=== PATIENT | female | born 1985 | race Caucasian/White ===

== ENCOUNTER 2016-09-11 20:50 | Inpatient (IN) | payer OTHER ==
[2016-09-11 21:44] VITALS: BMI 20.3
--- NOTE | 2016-09-11 21:50 | HP ---
COWS - Scale Resting Pulse: 0= [place] 80 or Below Sweatin= Chills/Flushing Restless Observation: 1= Difficult to Sit Still Pupil Size: 0= Normal to Room Light Bone or Joint Aches: 2= Severe Diffuse Aches Runny Nose/ Eye Tearin= Runny Nose/Eyes GI Upset > 30mins: 2= Nausea/Diarrhea Tremor Observation: 2= Slight Tremor Visible Yawning Observation: 0= None Anxiety or Irritability: 2=Irritable/Anxious Goose Flesh Skin: 3=Piloerection COWS Score: 15 Admission ROS S - HPI Chief Complaint: withdrawal sx Allergies/Adverse Reactions: Allergies Allergy/AdvReac Type Severity Reaction Status Date / Time Sulfa (Sulfonamide Allergy Intermediate Swelling Verified 09/11/16 21:52 Antibiotics) History of Present Illness: 31 years old female with long history of opiate nicotine dependence, denies medical issue has anxiety longest sobriety 3 years is admitted to detox Exam Limitations: No Limitations - Ebola screening Have you traveled outside of the country in the last 21 days: No (N) Have you had contact with anyone from an Ebola affected area: No Have you been sick,other than usual withdrawal symptoms: No Do you have a fever: No - Review of Systems Constitutional: Chills, Loss of Appetite, Changes in sleep, Unintentional Wgt. Loss, Unexplained wgt Loss EENT: reports: No Symptoms Reported Respiratory: reports: SOB with Exertion (green), Productive cough Cardiac: reports: No Symptoms Reported GI: reports: Diarrhea, Nausea, Poor Appetite, Poor Fluid Intake, Abdominal cramping : reports: No Symptoms Reported Musculoskeletal: reports: Back Pain, Joint Pain, Muscle Pain, Neck Pain Integumentary: reports: Change in Color (inner elbows) Neuro: reports: Tremors Endocrine: reports: No Symptoms Reported Hematology: reports: No Symptoms Reported Psychiatric: reports: Judgement Intact, Orientated x3, Anxious Other Systems: Reviewed and Negative Patient History - Patient Medical History Hx Anemia: No Hx Asthma: No Hx Chronic Obstructive Pulmonary Disease (COPD): No Hx Cancer: No Hx Cardiac Disorders: No Hx Congestive Heart Failure: No Hx Hypertension: No Hx Hypercholesterolemia: No Hx Pacemaker: No HX Cerebrovascular Accident: No Hx Seizures: No Hx Dementia: No Hx Diabetes: No Hx Gastrointestinal Disorders: No Hx Liver Disease: No Hx Genitourinary Disorders: No Hx Sexually Transmitted Disorders: No Hx Renal Disease (ESRD): No Hx Thyroid Disease: No Hx Human Immunodeficiency Virus (HIV): No Hx Hepatitis C: Yes Hx Depression: Yes Hx Suicide Attempt: No Hx Bipolar Disorder: No Hx Schizophrenia: No - Patient Surgical History Past Surgical History: No - PPD History Previous Implant?: Yes Documented Results: Negative w/o proof Implanted On Prior R Admission?: No PPD to be Administered?: Yes - Reproductive History Patient is a Female of Child Bearing Age (11 -55 yrs old): Yes Last Menstrual Period: 08/28/16 Patient : No - Smoking Cessation Smoking history: Current every day smoker Have you smoked in the past 12 months: Yes Aproximately how many cigarettes per day: 20 Cigars Per Day: 0 Hx Chewing Tobacco Use: No Initiated information on smoking cessation: Yes 'Breaking Loose' booklet given: 09/11/16 - Substance & Tx. History Hx Alcohol Use: No Hx Substance Use: Yes - Substances Abused Heroin Route: Inhalation Frequency: Daily Amount used: 20 bags Age of first use: 14 Date of Last Use: 09/11/16 Family Disease History - Family Disease History Family Disease History: Heart Disease: Father, Mother Admission Physical Exam [facility] - Physical General Appearance: Yes: Appropriately Dressed, Mild Distress, Thin, Tremorous, Irritable, Sweating, Anxious HEENTM: Yes: Hearing grossly Normal, Normal ENT Inspection, Normocephalic, Normal Voice Respiratory: Yes: Chest Non-Tender, Lungs Clear, Normal Breath Sounds, No Respiratory Distress, No Accessory Muscle Use Neck: Yes: Supple, Trachea in good position Breast: Yes: Breasts Symetrical Cardiology: Yes: Regular Rhythm, Regular Rate, S1, S2 Abdominal: Yes: Non Tender, Soft Genitourinary: Yes: Within Normal Limits Back: Yes: Normal Inspection Musculoskeletal: Yes: full range of Motion, Gait Steady, Back pain, Muscle Pain Extremities: Yes: Normal Range of Motion, Non-Tender, Tremors Neurological: Yes: Fully Oriented, Alert, Motor Strength 5/5, Normal Response, Depressed Affect Integumentary: Yes: Warm, Track [place] Lymphatic: Yes: Within Normal Limits - Diagnostic (1) Opioid dependence with withdrawal Current Visit: Yes Status: Acute (2) Cocaine dependence, uncomplicated Current Visit: Yes Status: Acute (3) Nicotine dependence Current Visit: Yes Status: Acute Qualifiers: Nicotine product type: cigarettes Substance use status: in withdrawal Qualified Code(s): F17.213 - Nicotine dependence, cigarettes, with withdrawal (4) Weight loss Current Visit: Yes Status: Acute (5) Skin abrasion Current Visit: Yes Status: Acute (6) Hepatitis C antibody test positive Current Visit: Yes Status: Chronic (7) Depression with anxiety Current Visit: Yes Status: Suspected Cleared for Admission BHS - Detox or Rehab S Level of Care: Medically Managed Detox Regimen/Protocol: Methadone BHS Breath Alcohol Content Breath Alcohol Content: 0 Vital Signs - Vital Signs Vital Signs Refused: No Temperature: 96.2 F Temperature Source: Oral Pulse Rate: 73 Respiratory Rate: 16 Blood Pressure: 103/66 BP Location: Left Arm Blood Pressure Position: Sitting - Height Height: 5 ft 3 in - Weight Weight: 115 lb Weight Measurement Method: Standing Scale Body Mass Index (BMI): 20.3 - Bowel Function Bowel Movement: Yes Urine Pregancy Test - Result Urine Test Results: Negative- NO Line Present Urine Drug Screen - Control Is Test Valid: Yes - Results Drug Screen Negative: No Urine Drug Screen Results: OPI-Opiates, MDMA-Ecstasy, OXY-Oxycodone
[2016-09-11] MEDS ORDERED: MENTHOL/PHENOL 1 EACH UD MM PRN (21:58)
[2016-09-11] MEDS ORDERED: MAG HYDROX/AL HYDROX/SIMETH 30 ML UNIT-DOSE CUP PO PRN (21:58)
[2016-09-11] MEDS ORDERED: MAGNESIUM CITRATE 300 ML BOTTLE PO PRN (21:58)
[2016-09-11] MEDS ORDERED: P-EPHED 60MG/TRIPROLIDI 2.5MG TABLET PO PRN (21:58)
[2016-09-11] MEDS ORDERED: METHADONE HCL 10 MG TABLET (FOR DETOX USE ONLY) PO ONE ×2 (21:58→23:00)
[2016-09-11] MEDS ORDERED: guaiFENesin/D-METHORPHAN HB 10 ML UNIT-DOSE CUPS PO PRN (21:58)
[2016-09-11] MEDS ORDERED: NICOTINE POLACRILEX 4 MG GUM BUC PRN (21:58)
[2016-09-11] MEDS ORDERED: ACETAMINOPHEN 325 MG TABLET (FP) PO PRN (21:58)
[2016-09-11] MEDS ORDERED: LOPERAMIDE HCL 2 MG CAPSULE PO PRN (21:58)
[2016-09-11] MEDS ORDERED: MAGNESIUM HYDROX 2400MG/30ML ORAL SUSPENSION 30 ML CUP PO PRN (21:58)
[2016-09-11] MEDS ORDERED: IBUPROFEN 400 MG TABLET (FP) PO PRN (21:58)
[2016-09-11] MEDS ORDERED: BACITRACIN 0.9 GM PACKET TP ONE (22:00)
[2016-09-11] MEDS: diazePAM 5 MG TABLET PO PRN (23:01)
[2016-09-11] MEDS: CYCLOBENZAPRINE HCL 10 MG TABLET (FP) PO PRN (23:02)
[2016-09-11] MEDS: THIAMINE HCL 100 MG TABLET (FP) PO SCH (23:07)
[2016-09-11 23:08] LABS: URINE APPEARANCE CLOUDY; URINE BILIRUBIN NEGATIVE (NEGATIVE); URINE BLOOD 1+ (NEGATIVE); URINE COLOR DKYELLOW; URINE GLUCOSE (UA) NEGATIVE (NEGATIVE); URINE KETONE NEGATIVE (NEGATIVE); URINE LEUK ESTERASE 3+ (NEGATIVE); URINE NITRITE POSITIVE (NEGATIVE); URINE PROTEIN 1+ (NEGATIVE); URINE UROBILINOGEN 4.0 E.U/dl E.U./dl (0.2-1.0)
[2016-09-11 23:15] LABS: URINE BACTERIA MANY /hpf (NONE SEEN); URINE MUCUS MANY; URINE RBC 7 /hpf (0-3); URINE WBC 521 /hpf (3-5)
[2016-09-12] MEDS: GABAPENTIN 300 MG CAPSULE (FP) PO SCH ×3 (05:36→22:39)
[2016-09-12 09:54] LABS: MCH 27.7 pg (25.7-33.7); MEAN CELL VOLUME 81.6 fl (80-96); MEAN PLT VOLUME 7.3 fl (7.5-11.1); PLATELET COUNT 263 K/MM3 (134-434); RDW 13.1 % (11.6-15.6); WHITE BLOOD COUNT 6.5 K/mm3 (4.0-10.0)
--- NOTE | 2016-09-12 09:55 | PN ---
S COWS - Scale Resting Pulse: 0= [place] 80 or Below Sweatin=Flushed/Facial Moisture Restless Observation: 1= Difficult to Sit Still Pupil Size: 1= Pupils >than Normal Bone or Joint Aches: 2= Severe Diffuse Aches Runny Nose/ Eye Tearin= Nasal Congestion GI Upset > 30mins: 1= Stomach Cramp Tremor Observation of Outstretched Hands: 1= Tremor [place], Not Seen Yawning Observation: 0= None Anxiety or Irritability: 2=Irritable/Anxious Goose Flesh Skin: 0=Smooth Skin COWS Score: 11 S Progress Note (SOAP) Subjective: interrupted sleep, sweats, nausea Objective: 09/12/16 09:53 Vital Signs Temperature 97.4 F L 09/12/16 06:35 Pulse Rate 70 09/12/16 06:35 Respiratory Rate 18 09/12/16 06:35 Blood Pressure 97/61 09/12/16 06:35 O2 Sat by Pulse Oximetry (%) Laboratory Tests 09/11/16 23:00 Urine Color Dkyellow Urine Appearance Cloudy Urine pH 7.0 Ur Specific [place] 1.016 Urine Protein 1+ H Urine Glucose (UA) Negative Urine Ketones Negative Urine Blood 1+ H Urine Nitrite Positive Urine Bilirubin Negative Urine Urobilinogen 4.0 e.u/dl H Ur Leukocyte Esterase 3+ H Urine RBC 7 Urine WBC 521 Ur Epithelial Cells Moderate Urine Bacteria Many Urine Mucus Many 09/12/16 11:11 Laboratory Tests 09/11/16 09/12/16 09/12/16 23:00 07:00 07:00 WBC 6.5 RBC 4.34 Hgb 12.0 Hct 35.4 MCV 81.6 MCHC 34.0 RDW 13.1 Plt Count 263 MPV 7.3 L Sodium 141 Potassium 3.7 Chloride 99 Carbon Dioxide 34 H Anion Gap 8 BUN 7 Creatinine 0.8 Creat Clearance w eGFR > 60 Random Glucose 74 Calcium 8.9 Total Bilirubin 0.2 AST 11 L ALT 18 Alkaline Phosphatase 84 Total Protein 7.3 Albumin 3.0 L Urine Color Dkyellow Urine Appearance Cloudy Urine pH 7.0 Ur Specific [place] 1.016 Urine Protein 1+ H Urine Glucose (UA) Negative Urine Ketones Negative Urine Blood 1+ H Urine Nitrite Positive Urine Bilirubin Negative Urine Urobilinogen 4.0 e.u/dl H Ur Leukocyte Esterase 3+ H Urine RBC 7 Urine WBC 521 Ur Epithelial Cells Moderate Urine Bacteria Many Urine Mucus Many pt aox3 in nad , ambulating Assessment: 09/12/16 09:54 withdrawal sx's 09/12/16 11:14 roger. u/a r/o uti Plan: cont detox increase fluids repeat u/a , cx
[2016-09-12] MEDS ORDERED: METHADONE HCL 10 MG TABLET (FOR DETOX USE ONLY) PO ONE (10:00)
[2016-09-12 10:21] LABS: ALK PHOS 84 U/L (45-117); ANION GAP 8 (8-16); BILIRUBIN,TOTAL 0.2 mg/dL (0.2-1.0); CALCIUM 8.9 mg/dL (8.5-10.1); CO2 34 mmol/L (21-32); CREATININE 0.8 mg/dL (0.55-1.02); GLUCOSE,RANDOM 74 mg/dL (74-106); SGOT/AST 11 U/L (15-37); SGPT/ALT 18 U/L (12-78); TOT PROT 7.3 g/dl (6.4-8.2)
[2016-09-12] MEDS: PRENATAL VITAMINS W/ FOLIC ACID TABLET (FP) PO SCH (10:32)
[2016-09-12] MEDS: CYCLOBENZAPRINE HCL 10 MG TABLET (FP) PO PRN ×2 (10:32→22:39)
[2016-09-12] MEDS: diazePAM 5 MG TABLET PO PRN (10:32)
[2016-09-12] MEDS: NICOTINE 21 MG/24 HOURS TOPICAL PATCH TD SCH (10:33)
--- NOTE | 2016-09-12 12:03 | CONSULT ---
[facility] Psychiatric Consult - Data Date of interview: 09/12/16 Admission source: [facility] Identifying data: First admission to [facility] for this 31 y/o female seeking detox treatment on for heroin dependence.Patient is single without children,domiciled,unemployed and dependent on relatives/friends for financial support. Substance Abuse History: - Smoking Cessation. Smoking history: Current every day smoker. Have you smoked in the past 12 months: Yes. Aproximately how many cigarettes per day: 20. Cigars Per Day: 0. Hx Chewing Tobacco Use: No. Initiated information on smoking cessation: Yes. 'Breaking Loose' booklet given : 09/11/16. - Substance & Tx. History. Hx Alcohol Use: No. Hx Substance Use: Yes. - Substances Abused. Heroin. Route: Inhalation. Frequency: Daily. Amount used: 20 bags. Age of first use: 14. Date of Last Use: 09/11/16. Confirmed by the patient in this interview. Medical History: Patient endorses good general health. Psychiatric History: Patient admits to one psychiatric hospitalization at [facility] in [facility] (years ago).Circumstances not discussed.Ms Tejada states that she is diagnosed with MDD,Anxiety Disorder and PTSD.She is managed by a private psychiatrist,Dr Doe,in [facility].Maintained on suboxone,klonopin and gabapentin.Patient is a distant and evasive historian.No interest for psychotropic medications with the exception of benzodiazepines. Physical/Sexual Abuse/Trauma History: Patient declines to discuss this topic. Additional Comment: Urine Drug Screen Results: OPI-Opiates, MDMA-Ecstasy, OXY- Oxycodone.Noted. Mental Status Exam - Mental Status Exam Alert and Oriented to: Time, Place, Person Cognitive Function: Good Patient Appearance: Unkempt, Disheveled Mood: Nervous, Anxious Affect: Mood Congruent Patient Behavior: Sedated, Fatigued Speech Pattern: Clear Voice Loudness: Normal Thought Process: Goal Oriented Thought Disorder: Not Present Hallucinations: Denies Suicidal Ideation: Denies Homicidal Ideation: Denies Insight/Judgement: Poor Sleep: Well Appetite: Good Muscle strength/Tone: Normal Gait/Station: Normal Psychiatric Findings - Problem List ([place] 1, 2,3) (1) Opioid dependence with withdrawal Current Visit: Yes Status: Acute (2) Nicotine dependence Current Visit: Yes Status: Acute Qualifiers: Nicotine product type: cigarettes Substance use status: in withdrawal Qualified Code(s): F17.213 - Nicotine dependence, cigarettes, with withdrawal (3) Ecstasy abuse Current Visit: Yes Status: Acute (4) Substance induced mood disorder Current Visit: Yes Status: Acute (5) Hepatitis C antibody test positive Current Visit: Yes Status: Chronic - Initial Treatment Plan Initial Treatment Plan: Psychoeducation.Detoxification in progress.Observation.
--- NOTE | 2016-09-12 15:33 | EKG ---
Test Reason : Blood Pressure : / mmHG Vent. Rate : 071 BPM Atrial Rate : 071 BPM P-R Int : 150 ms QRS Dur : 096 ms QT Int : 410 ms P-R-T Axes : 070 064 052 degrees QTc Int : 445 ms NORMAL SINUS RHYTHM NORMAL ECG NO PREVIOUS ECGS AVAILABLE Confirmed by SAAD TORO MD ([id number]) on 09/12/2016 3:33:01 PM Referred By: Confirmed By:SAAD TORO MD
[2016-09-12] MEDS: THIAMINE HCL 100 MG TABLET (FP) PO SCH (22:39)
[2016-09-13] MEDS: GABAPENTIN 300 MG CAPSULE (FP) PO SCH ×3 (07:31→22:29)
[2016-09-13] MEDS ORDERED: METHADONE HCL 5 MG TABLET (FOR DETOX USE ONLY) PO ONE (10:00)
[2016-09-13 10:05] LABS: URINE APPEARANCE CLOUDY; URINE BILIRUBIN NEGATIVE (NEGATIVE); URINE BLOOD NEGATIVE (NEGATIVE); URINE COLOR AMBER; URINE GLUCOSE (UA) NEGATIVE (NEGATIVE); URINE KETONE NEGATIVE (NEGATIVE); URINE NITRITE POSITIVE (NEGATIVE); URINE UROBILINOGEN NEGATIVE E.U./dl (0.2-1.0)
[2016-09-13] MEDS: diazePAM 5 MG TABLET PO PRN ×2 (10:19→22:29)
[2016-09-13] MEDS: PRENATAL VITAMINS W/ FOLIC ACID TABLET (FP) PO SCH (10:20)
[2016-09-13] MEDS: NICOTINE 21 MG/24 HOURS TOPICAL PATCH TD SCH (10:20)
[2016-09-13 10:45] LABS: URINE LEUK ESTERASE 3+ (NEGATIVE); URINE PROTEIN 1+ (NEGATIVE)
[2016-09-13 10:48] LABS: CALCIUM OXALATE CRYSTALS MANY /hpf (NONE SEEN); URINE BACTERIA MANY /hpf (NONE SEEN); URINE MUCUS MANY; URINE RBC 9 /hpf (0-3); URINE WBC 442 /hpf (3-5)
--- NOTE | 2016-09-13 11:19 | PN ---
BHS COWS - Scale Resting Pulse: 2= [place] 101-120 Sweatin=Flushed/Facial Moisture Restless Observation: 0= Sits Still Pupil Size: 0= Normal to Room Light Bone or Joint Aches: 2= Severe Diffuse Aches Runny Nose/ Eye Tearin= Nasal Congestion GI Upset > 30mins: 0= None Tremor Observation of Outstretched Hands: 2= Slight Tremor Visible Yawning Observation: 2= >3x During Session Anxiety or Irritability: 2=Irritable/Anxious Goose Flesh Skin: 0=Smooth Skin COWS Score: 13 BHS Progress Note (SOAP) Subjective: agitation anxiety sweats shakes interrupted sleep body aches Objective: 09/13/16 11:18 Vital Signs Temperature 98.2 F 09/13/16 10:20 Pulse Rate 110 H 09/13/16 10:20 Respiratory Rate 16 09/13/16 10:20 Blood Pressure 113/68 09/13/16 10:20 O2 Sat by Pulse Oximetry (%) Laboratory Tests 09/11/16 09/12/16 09/12/16 23:00 07:00 07:00 WBC 6.5 RBC 4.34 Hgb 12.0 Hct 35.4 MCV 81.6 MCHC 34.0 RDW 13.1 Plt Count 263 MPV 7.3 L Sodium 141 Potassium 3.7 Chloride 99 Carbon Dioxide 34 H Anion Gap 8 BUN 7 Creatinine 0.8 Creat Clearance w eGFR > 60 Random Glucose 74 Calcium 8.9 Total Bilirubin 0.2 AST 11 L ALT 18 Alkaline Phosphatase 84 Total Protein 7.3 Albumin 3.0 L Urine Color Dkyellow Urine Appearance Cloudy Urine pH 7.0 Ur Specific [place] 1.016 Urine Protein 1+ H Urine Glucose (UA) Negative Urine Ketones Negative Urine Blood 1+ H Urine Nitrite Positive Urine Bilirubin Negative Urine Urobilinogen 4.0 e.u/dl H Ur Leukocyte Esterase 3+ H Urine RBC 7 Urine WBC 521 Ur Epithelial Cells Moderate Calcium Oxalate Crystal Urine Bacteria Many Urine Mucus Many RPR Titer 09/12/16 09/12/16 07:00 08:00 WBC RBC Hgb Hct MCV MCHC RDW Plt Count MPV Sodium Potassium Chloride Carbon Dioxide Anion Gap BUN Creatinine Creat Clearance w eGFR Random Glucose Calcium Total Bilirubin AST ALT Alkaline Phosphatase Total Protein Albumin Urine Color [place] Urine Appearance Cloudy Urine pH 6.0 Ur Specific [place] 1.018 Urine Protein 1+ H Urine Glucose (UA) Negative Urine Ketones Negative Urine Blood Negative Urine Nitrite Positive Urine Bilirubin Negative Urine Urobilinogen Negative Ur Leukocyte Esterase 3+ H Urine RBC 9 Urine WBC 442 Ur Epithelial Cells Rare Calcium Oxalate Crystal Many Urine Bacteria Many Urine Mucus Many RPR Titer Nonreactive pt denies any s/s uti or any urinary infections encouraged increased fluid intake awake/alert ambulating no acute distress Assessment: 09/13/16 11:19 withdrawal sx Plan: continue detox increase fluids
[2016-09-13] MEDS: THIAMINE HCL 100 MG TABLET (FP) PO SCH (22:29)
[2016-09-13] MEDS: CYCLOBENZAPRINE HCL 10 MG TABLET (FP) PO PRN (22:30)
[2016-09-14] MEDS: diazePAM 5 MG TABLET PO PRN ×2 (05:39→10:41)
[2016-09-14] MEDS: GABAPENTIN 300 MG CAPSULE (FP) PO SCH ×3 (05:39→22:40)
[2016-09-14] MEDS ORDERED: METHADONE HCL 5 MG TABLET (FOR DETOX USE ONLY) PO ONE (10:00)
[2016-09-14] MEDS: NICOTINE 21 MG/24 HOURS TOPICAL PATCH TD SCH (11:08)
[2016-09-14] MEDS: PRENATAL VITAMINS W/ FOLIC ACID TABLET (FP) PO SCH (11:09)
--- NOTE | 2016-09-14 12:42 | PN ---
BHS Progress Note (SOAP) Subjective: Body Aches, Tremors, Sweating, Productive cough. Objective: PT. A & O X 3, OBSERVED AMBULATING ON UNIT. LUNG SOUNDS AUSCULTATED CLEAR AND EQUAL BILATERALLY. 09/14/16 12:30 Vital Signs Temperature 97.9 F 09/14/16 09:53 Pulse Rate 121 H 09/14/16 09:53 Respiratory Rate 20 09/14/16 09:53 Blood Pressure 111/62 09/14/16 09:53 O2 Sat by Pulse Oximetry (%) Laboratory Last Values WBC 6.5 K/mm3 (4.0-10.0) 09/12/16 07:00 RBC 4.34 M/mm3 (3.60-5.2) 09/12/16 07:00 Hgb 12.0 GM/dL (10.7-15.3) 09/12/16 07:00 Hct 35.4 % (32.4-45.2) 09/12/16 07:00 MCV 81.6 fl (80-96) 09/12/16 07:00 MCHC 34.0 g/dl (32.0-36.0) 09/12/16 07:00 RDW 13.1 % (11.6-15.6) 09/12/16 07:00 Plt Count 263 K/MM3 (134-434) 09/12/16 07:00 MPV 7.3 fl (7.5-11.1) L 09/12/16 07:00 Sodium 141 mmol/L (136-145) 09/12/16 07:00 Potassium 3.7 mmol/L (3.5-5.1) 09/12/16 07:00 Chloride 99 mmol/L (98-107) 09/12/16 07:00 Carbon Dioxide 34 mmol/L (21-32) H 09/12/16 07:00 Anion Gap 8 (8-16) 09/12/16 07:00 BUN 7 mg/dL (7-18) 09/12/16 07:00 Creatinine 0.8 mg/dL (0.55-1.02) 09/12/16 07:00 Creat Clearance w eGFR > 60 (>60) 09/12/16 07:00 Random Glucose 74 mg/dL (74-106) 09/12/16 07:00 Calcium 8.9 mg/dL (8.5-10.1) 09/12/16 07:00 Total Bilirubin 0.2 mg/dL (0.2-1.0) 09/12/16 07:00 AST 11 U/L (15-37) L 09/12/16 07:00 ALT 18 U/L (12-78) 09/12/16 07:00 Alkaline Phosphatase 84 U/L (45-117) 09/12/16 07:00 Total Protein 7.3 g/dl (6.4-8.2) 09/12/16 07:00 Albumin 3.0 g/dl (3.4-5.0) L 09/12/16 07:00 Urine Color [place] 09/12/16 08:00 Urine Appearance Cloudy 09/12/16 08:00 Urine pH 6.0 (5.0-8.0) 09/12/16 08:00 Ur Specific [place] 1.018 (1.001-1.035) 09/12/16 08:00 Urine Protein 1+ (NEGATIVE) H 09/12/16 08:00 Urine Glucose (UA) Negative (NEGATIVE) 09/12/16 08:00 Urine Ketones Negative (NEGATIVE) 09/12/16 08:00 Urine Blood Negative (NEGATIVE) 09/12/16 08:00 Urine Nitrite Positive (NEGATIVE) 09/12/16 08:00 Urine Bilirubin Negative (NEGATIVE) 09/12/16 08:00 Urine Urobilinogen Negative E.U./dl (0.2-1.0) 09/12/16 08:00 Ur Leukocyte Esterase 3+ (NEGATIVE) H 09/12/16 08:00 Urine RBC 9 /hpf (0-3) 09/12/16 08:00 Urine WBC 442 /hpf (3-5) 09/12/16 08:00 Ur Epithelial Cells Rare /hpf (FEW) 09/12/16 08:00 Calcium Oxalate Crystal Many /hpf (NONE SEEN) 09/12/16 08:00 Urine Bacteria Many /hpf (NONE SEEN) 09/12/16 08:00 Urine Mucus Many 09/12/16 08:00 RPR Titer Nonreactive (NONREACTIVE) 09/12/16 07:00 LABS NOTED. 09/14/16 12:32 Assessment: 09/14/16 12:31 WITHDRAWAL SYMPTOMS. Plan: CONTINUE DETOX. ADVISED PT. TO FOLLOW-UP WITH [facility] / REHAB MEDICAL PROVIDER AFTER DISCHARGE FROM DETOX FOR GENERAL MEDICAL ASSESSMENT.
[2016-09-14] MEDS: LEVOFLOXACIN 250 MG TABLET (FP) PO SCH (15:38)
[2016-09-14] MEDS: diphenhydrAMINE HCL 50 MG CAPSULE PO PRN (22:40)
[2016-09-14] MEDS: THIAMINE HCL 100 MG TABLET (FP) PO SCH (22:41)
[2016-09-14] MEDS: CYCLOBENZAPRINE HCL 10 MG TABLET (FP) PO PRN (22:42)
[2016-09-15] MEDS: LEVOFLOXACIN 250 MG TABLET (FP) PO SCH (06:07)
[2016-09-15] MEDS: GABAPENTIN 300 MG CAPSULE (FP) PO SCH ×3 (06:08→22:38)
[2016-09-15] MEDS ORDERED: METHADONE HCL 10 MG TABLET (FOR DETOX USE ONLY) PO ONE (10:00)
[2016-09-15] MEDS: PRENATAL VITAMINS W/ FOLIC ACID TABLET (FP) PO SCH (10:39)
[2016-09-15] MEDS: NICOTINE 21 MG/24 HOURS TOPICAL PATCH TD SCH (10:40)
--- NOTE | 2016-09-15 10:57 | PN ---
BHS Progress Note (SOAP) Subjective: feeling much better anxiety Objective: 09/15/16 10:56 Vital Signs Temperature 98.2 F 09/15/16 10:16 Pulse Rate 95 H 09/15/16 10:16 Respiratory Rate 18 09/15/16 10:16 Blood Pressure 105/67 09/15/16 10:16 O2 Sat by Pulse Oximetry (%) awake/alert ambulating no acute distress Assessment: 09/15/16 10:56 withdrawal sx Plan: continue detox increase fluids continue abx d/c in am
[2016-09-15] MEDS: THIAMINE HCL 100 MG TABLET (FP) PO SCH (22:38)
[2016-09-15] MEDS: diphenhydrAMINE HCL 50 MG CAPSULE PO PRN (22:38)
[2016-09-16] MEDS: CYCLOBENZAPRINE HCL 10 MG TABLET (FP) PO PRN (03:52)
[2016-09-16] MEDS: GABAPENTIN 300 MG CAPSULE (FP) PO SCH (05:50)
[2016-09-16] MEDS: LEVOFLOXACIN 250 MG TABLET (FP) PO SCH (05:50)
[2016-09-16] MEDS ORDERED: METHADONE HCL 5 MG TABLET (FOR DETOX USE ONLY) PO ONE (06:00)
[2016-09-16 06:42] VITALS: BP 100/63; PULSE 114; TEMP 98.6
--- NOTE | 2016-09-16 08:31 | PN ---
S Progress Note (SOAP) Subjective: ALERT,NO COMPLAINT Objective: 09/16/16 08:29 Vital Signs Temperature 98.6 F 09/16/16 06:41 Pulse Rate 114 H 09/16/16 06:41 Respiratory Rate 20 09/16/16 06:41 Blood Pressure 100/63 09/16/16 06:41 O2 Sat by Pulse Oximetry (%) Assessment: 09/16/16 08:29 DETOX COMPLETED,NO WITHDRAWAL SYMPTOM Plan: DISCHARGE TODAY,FOLLOW UP WITH AFTER CARE PROGRAM ARRANGEMENT AND PMD FOR MEDICAL PROBLEM
--- NOTE | 2016-09-16 08:33 | PN ---
S Progress Note (SOAP) Subjective: ALERT,NO COMPLAINT Objective: 09/16/16 08:32 Vital Signs Temperature 98.6 F 09/16/16 06:41 Pulse Rate 114 H 09/16/16 06:41 Respiratory Rate 20 09/16/16 06:41 Blood Pressure 100/63 09/16/16 06:41 O2 Sat by Pulse Oximetry (%) Assessment: 09/16/16 08:32 DETOX COMPLETED,NO WITHDRAWAL SYMPTOM Plan: DISCHARGE TODAY,FOLLOW UP WITH AFTER CARE PROGRAM ARRANGEMENT AND PMD FOR MEDICAL PROBLEM
--- NOTE | 2016-12-14 15:03 | DS ---
[facility] Detox Discharge Summary Admission Date: 09/11/16 Discharge Date: 09/16/16 - History Present History: Cocaine Dependence, Opioid Dependence - Physical Exam Results Vital Signs: Vital Signs Temperature 98.6 F 09/16/16 06:41 Pulse Rate 114 H 09/16/16 06:41 Respiratory Rate 20 09/16/16 06:41 Blood Pressure 100/63 09/16/16 06:41 O2 Sat by Pulse Oximetry (%) - Treatment Hospital Course: Detox Protocol Followed, Detoxed Safely, Responded well, Discharged Condition Good - Medication Discharge Medications: Ambulatory Orders Clonazepam [Klonopin -] 2 mg PO BID 09/11/16 Gabapentin [Neurontin -] 300 mg PO Q8H #90 capsule 09/16/16 Levofloxacin [Levaquin -] 750 mg PO DAILY@0600 #7 tablet 09/16/16 - Diagnosis (1) Cocaine dependence, uncomplicated Status: Chronic (2) Ecstasy abuse Status: Chronic (3) Nicotine dependence Status: Chronic Qualifiers: Nicotine product type: cigarettes Substance use status: uncomplicated Qualified Code(s): F17.210 - Nicotine dependence, cigarettes, uncomplicated (4) Opioid dependence with withdrawal Status: Chronic (5) Skin abrasion Status: Acute (6) Hepatitis C antibody test positive Status: Chronic (7) Depression with anxiety Status: Chronic - AMA Did Patient Leave Against Medical Advice: No
== END 2016-09-16 09:10 | disposition home or self-care (01) | DRG 773 ==
LOC: YASAS 20:50 → Y6N 21:45
PROVIDERS: ADMIT Internal Medicine Addiction Medicine; ATTEND Internal Medicine Addiction Medicine
PROC: HZ2ZZZZ Detoxification Services for Substance Abuse Treatment (ICD-10-PCS; principal; 2016-09-16)
DX: F11.23 Opioid dependence with withdrawal (principal); F14.20 Cocaine dependence, uncomplicated; F17.213 Nicotine dependence, cigarettes, with withdrawal; F15.10 Other stimulant abuse, uncomplicated; F41.8 Other specified anxiety disorders; F19.24 Other psychoactive substance dependence with psychoactive substance-induced mood disorder; B18.2 Chronic viral hepatitis C; R63.4 Abnormal weight loss; Z68.20 Body mass index [BMI] 20.0-20.9, adult; S40.812A Abrasion of left upper arm, initial encounter; S40.811A Abrasion of right upper arm, initial encounter; X58.XXXA Exposure to other specified factors, initial encounter
CPT/HCPCS: 36415; 80053; 81003; 81015; 85027; 86593; 87086; 87186; 93005; 93010